=== PATIENT | male | born 1950 ===

== ENCOUNTER 2023-04-15 08:45 | Inpatient (IN) | payer OTHER ==
[~2023-04-15] VITALS: Ht 167.6 cm; Wt 59.0 kg
[2023-04-15] MEDS ORDERED: NEURONTIN800 MG PO (09:52)
[2023-04-15] MEDS ORDERED: PROTONIX40 MG PO (09:52)
[2023-04-15] MEDS ORDERED: CARAFATE1 GM PO (09:54)
[2023-04-15] MEDS ORDERED: ADULT ASPIRIN81 MG PO (09:54)
[2023-04-15] MEDS ORDERED: TRAMADOL 50 MG (09:54)
[2023-04-15] MEDS ORDERED: VOLTAREN ARTHRI20 GM TP (09:55)
[2023-04-15 10:34] LABS: PH,URINE 5.5 (5.0-8.0); URINE APPEARANCE Clear; URINE BILIRRUBIN Negative (NEGATIVE); URINE BLOOD Negative; URINE COLOR Yellow; URINE GLUCOSE Negative (NEGATIVE); URINE LEUKOCYTE Negative; URINE NITRATE Negative; URINE PROTEIN Negative (NEGATIVE); URINE UROBILINOGEN 0.2 E.U./dl
[2023-04-15 10:38] LABS: URINE BACTERIA 6.2 uL (0.0-1933)
[2023-04-15 10:51] LABS: HEMATOCRIT 44.1 % (39.0-48.0); HEMOGLOBIN 14.5 g/dL (13-16.00); MEAN CELL VOLUME 91.3 fL (80.0-100.00); MEAN CORPUSCULAR HGB CONC 32.9 g/dl (32.0-36.0); PLATELET COUNT 183 K/uL (150-450); RED BLOOD COUNT 4.83 M/uL (4.00-6.00); RED CELL DISTRIBUTION WIDTH 12.6 % (11.5-14.5)
[2023-04-15 11:19] LABS: INR 1.04; PARTIAL THROMBOPLASTIN TIME 27.5 SECONDS (22.0-34.0); PROTHROMBIN TIME 10.9 SECONDS (9.0-11.5)
[2023-04-15 11:26] LABS: CALCIUM 9.3 mg/dL (8.5-10.1); CREATININE SERUM 0.94 mg/dL (0.70-1.30); GFR 79.11; POTASSIUM 4.54 mEq/L (3.5-5.1); T4 TOTAL 6.87 UG/DL (4.5-12.1); TSH 0.835 uIU/mL (0.358-3.74)
[2023-04-15 11:36] LABS: URINE EPITHELIAL CELLS 0.7 uL (0.0-38.8); URINE RBC 1.2 uL (0.0-20.8)
[2023-04-20] MEDS ORDERED: MEDROLPACK PO (11:30)
[2023-04-20] MEDS ORDERED: GABAPENTIN100 M2 PO (11:30)
[2023-04-20] MEDS ORDERED: AMOX-CLAV 875-1 EACH PO (11:30)
[2023-04-20] MEDS ORDERED: PERCOCET 5-3251 EACH PO (11:30)
[2023-04-20] MEDS ORDERED: NEURONTIN800 MG PO (11:31)
[2023-04-20] MEDS ORDERED: COLACE100 MG PO (11:31)
[2023-04-21 08:22] LABS: HEMATOCRIT 38.1 % (39.0-48.0); MEAN CELL VOLUME 89.2 fL (80.0-100.00); MEAN CORPUSCULAR HEMOGLOBIN 30.5 pg (27.00-32.0); MEAN CORPUSCULAR HGB CONC 34.2 g/dl (32.0-36.0); PLATELET COUNT 165 K/uL (150-450); RED BLOOD COUNT 4.27 M/uL (4.00-6.00); RED CELL DISTRIBUTION WIDTH 13.1 % (11.5-14.5)
[2023-04-21 08:53] LABS: CALCIUM 8.4 mg/dL (8.5-10.1); CREATININE SERUM 0.86 mg/dL (0.70-1.30); GFR 87.66; POTASSIUM 4.71 mEq/L (3.5-5.1)
== END 2023-04-22 11:39 | disposition home or self-care (01) | DRG 454 ==
LOC: O/R 04-20 05:30 → SURH 04-20 05:30
PROVIDERS: ADMIT Orthopaedic Surgery Orthopaedic Surgery of the Spine; ATTEND Orthopaedic Surgery Orthopaedic Surgery of the Spine
PROC: 0SG1071 Fusion of 2 or more Lumbar Vertebral Joints with Autologous Tissue Substitute, Posterior Approach, Posterior Column, Open Approach (ICD-10-PCS; 2023-04-20)
PROC: 0SG1070 Fusion of 2 or more Lumbar Vertebral Joints with Autologous Tissue Substitute, Anterior Approach, Anterior Column, Open Approach (ICD-10-PCS; 2023-04-20)
PROC: 0QB30ZZ Excision of Left Pelvic Bone, Open Approach (ICD-10-PCS; 2023-04-20)
PROC: 07DR0ZZ Extraction of Iliac Bone Marrow, Open Approach (ICD-10-PCS; 2023-04-20)
PROC: XRGC0R7 Fusion of 2 or more Lumbar Vertebral Joints using Custom-Made Anatomically Designed Interbody Fusion Device, Open Approach, New Technology Group 7 (ICD-10-PCS; principal; 2023-04-20 16:30)
DX: M48.062 Spinal stenosis, lumbar region with neurogenic claudication (principal); M96.0 Pseudarthrosis after fusion or arthrodesis; M51.36 Other intervertebral disc degeneration, lumbar region

== ENCOUNTER 2024-01-18 09:41 | Inpatient (IN) | payer OTHER ==
[~2024-01-18] VITALS: Ht 182.9 cm; Wt 59.0 kg
[~2024-01-18 09:41] MED LIST: ADULT ASPIRIN81 MG PO; AMOX-CLAV 875-1 EACH PO; CARAFATE1 GM PO; COLACE100 MG PO; GABAPENTIN100 M2 PO; MEDROLPACK PO; NEURONTIN800 MG PO; PERCOCET 5-3251 EACH PO; PROTONIX40 MG PO; TRAMADOL 50 MG; VOLTAREN ARTHRI20 GM TP
[2024-01-24] MEDS ORDERED: VANCOMYCIN HCL 1,000 MG VIAL ONE ×2 (08:10→10:26)
[2024-01-24] MEDS ORDERED: CEFAZOLIN SODIUM 1,000 MG VIAL ONE ×2 (08:11→16:47)
[2024-01-24] MEDS ORDERED: PERCOCET 5-3251 EACH PO (08:13)
[2024-01-24] MEDS ORDERED: MEDROLPACK PO (08:14)
[2024-01-24] MEDS ORDERED: AMOX-CLAV 875-1 EACH PO (08:14)
[2024-01-24] MEDS ORDERED: COLACE100 MG PO (08:14)
[2024-01-24] MEDS ORDERED: PROMETHAZINE HCL 50 MG/ML AMPUL IM PRN (08:15)
[2024-01-24] MEDS ORDERED: GABAPENTIN100 M2 PO (08:15)
[2024-01-24] MEDS ORDERED: NEURONTIN800 MG PO (08:15)
[2024-01-24] MEDS ORDERED: 0.9 % SODIUM CHLORIDE 1,000 ML IV SCH (08:15)
[2024-01-24] MEDS ORDERED: ENALAPRILAT DIHYDRATE 1.25 MG/ML VIAL IV PRN (08:15)
[2024-01-24] MEDS ORDERED: TAMSULOSIN HCL 0.4 MG CAP PO SCH (09:00)
[2024-01-24] MEDS ORDERED: METHYLPREDNISOLONE SOD SUCC 125 MG VIAL IV SCH (09:00)
[2024-01-24] MEDS ORDERED: CEFAZOLIN SODIUM 1,000 MG in 0.9 % SODIUM CHLORIDE 50 ML IV SCH (09:00)
[2024-01-24] MEDS ORDERED: MORPHINE SULFATE 4 MG/ML VIAL IV SCH (09:00)
[2024-01-24] MEDS ORDERED: FAMOtidine 20 MG TABLET PO SCH (09:00)
[2024-01-24] MEDS ORDERED: DOCUSATE SODIUM 100MG CAP PO SCH (09:00)
[2024-01-24] MEDS ORDERED: VANCOMYCIN HCL 1,000 MG VIAL IV SCH (09:00)
[2024-01-24] MEDS ORDERED: MORPHINE SULFATE 2 MG,MORPHINE SULFATE 4 MG IV SCH (09:00)
[2024-01-24] MEDS ORDERED: HEMOSTATIC MATRIX WITH THROMBIN KIT TOP ONE (10:25)
[2024-01-24] MEDS ORDERED: METHYLPREDNISOLONE SOD SUCC 125 MG VIAL ONE (10:26)
[2024-01-24] MEDS ORDERED: VANCOMYCIN HCL 1,000 MG VIAL SPEPROC NR ×2 (10:45)
[2024-01-24] MEDS ORDERED: METHYLPREDNISOLONE SOD SUCC 125 MG VIAL IV NR (10:45)
[2024-01-24] MEDS ORDERED: METHYLPREDNISOLONE ACETATE 80 MG/ML VIAL IJ NR (10:45)
[2024-01-24] MEDS ORDERED: CEFAZOLIN SODIUM 1,000 MG VIAL IV NR (10:45)
[2024-01-24] MEDS ORDERED: VANCOMYCIN HCL 1,000 MG VIAL IV ONE (12:00)
[2024-01-24] MEDS ORDERED: THROMBIN,HU/FIBRINOGEN/CALCIUM 10 ML SYRINGE TOP ONE ×2 (13:03→13:30)
[2024-01-24] MEDS ORDERED: GABAPENTIN 800 MG TABLET PO SCH (21:00)
[2024-01-25] MEDS ORDERED: SODIUM CHLORIDE 0.45 % 1,000 ML IV SCH
[2024-01-25] MEDS ORDERED: OxyCODONE HCL/APAP UD (PERCOCET) PO PRN (06:01)
[2024-01-25 06:40] LABS: HEMATOCRIT 40.4 % (39.0-48.0); HEMOGLOBIN 14.2 g/dL (13-16.00); MEAN CELL VOLUME 88.5 fL (80.0-100.00); MEAN CORPUSCULAR HEMOGLOBIN 31.1 pg (27.00-32.0); MEAN CORPUSCULAR HGB CONC 35.1 g/dl (32.0-36.0); PLATELET COUNT 166 K/uL (150-450); RED BLOOD COUNT 4.56 M/uL (4.00-6.00); RED CELL DISTRIBUTION WIDTH 13.4 % (11.5-14.5)
[2024-01-25 07:31] LABS: CALCIUM 8.7 mg/dL (8.5-10.1); CREATININE SERUM 0.9 mg/dL (0.70-1.30); GFR 82.95; POTASSIUM 4.62 mEq/L (3.5-5.1)
== END 2024-01-26 09:53 | disposition home or self-care (01) | DRG 520 ==
LOC: ADM 10:45 → O/R 01-24 05:50 → SURH 01-24 07:00 → EDSTATUS 01-24 10:45 → CIR.AMB 01-24 10:45 → PED 01-24 14:41
PROVIDERS: ADMIT Orthopaedic Surgery Orthopaedic Surgery of the Spine; ATTEND Orthopaedic Surgery Orthopaedic Surgery of the Spine
PROC: 0SP004Z Removal of Internal Fixation Device from Lumbar Vertebral Joint, Open Approach (ICD-10-PCS; 2024-01-24)
PROC: 00NY0ZZ Release Lumbar Spinal Cord, Open Approach (ICD-10-PCS; 2024-01-24)
PROC: 07DR0ZZ Extraction of Iliac Bone Marrow, Open Approach (ICD-10-PCS; 2024-01-24)
PROC: 00JU0ZZ Inspection of Spinal Canal, Open Approach (ICD-10-PCS; principal; 2024-01-24 07:00)
DX: M96.0 Pseudarthrosis after fusion or arthrodesis (principal); M54.16 Radiculopathy, lumbar region; M48.061 Spinal stenosis, lumbar region without neurogenic claudication